=== PATIENT | female | born 1995 | race Caucasian/White ===

== ENCOUNTER 2016-12-09 19:47 | Emergency (ER) | payer OTHER ==
[~2016-12-09] VITALS: Ht 160 cm; Wt 59.9 kg
[2016-12-09] MEDS ORDERED: MULT1CHW39 PO (20:18)
[2016-12-09] MEDS ORDERED: JOLETAB PO (20:18)
[2016-12-09 21:10] LABS: INR 0.91
[2016-12-09 21:27] LABS: BASO % 0.5 % (0.0-1.0); EOS # 0.1 K/mm3 (0.0-0.50); EOS % 1.4 % (0.0-3.0); LARGE UNSTAINED CELL # 0.2 K/mm3 (0.0-0.4); LARGE UNSTAINED CELL % 2.5 % (0.0-4.0); LYMPH # 4.4 K/mm3 (1.5-6.5); MEAN CORPUSCULAR HEMOGLOBIN 31.5 pg (27.0-33.0); MEAN CORPUSCULAR HGB CONC 33.7 g/dl (32.0-36.5); MEAN CORPUSCULAR VOLUME 93.4 fl (80.0-96.0); MONO # 0.5 K/mm3 (0.0-0.8); MONO % 5.3 % (0.0-5.0); NEUTROPHILS # 4.6 K/mm3 (1.8-7.7); NEUTROPHILS % 47.3 % (36.0-66.0); PLATELET COUNT, AUTOMATED 285 k/mm3 (150-450); RED CELL DISTRIBUTION WIDTH 12.3 % (11.5-14.5); WHITE BLOOD COUNT 9.6 K/mm3 (4.0-10.0)
[2016-12-09 21:29] LABS: CONTROL LINE HCG INT CTR LINE PRESENT
[2016-12-09 21:35] LABS: ANION GAP 10 MEQ/L (8-16); BLOOD UREA NITROGEN 7 MG/DL (7-18); CALCIUM LEVEL 9.2 MG/DL (8.5-10.1); CARBON DIOXIDE LEVEL 26 MEQ/L (21-32); CHLORIDE LEVEL 105 MEQ/L (98-107); GLOMERULAR FILTRATION RATE > 60.0 (>60); GLUCOSE, FASTING 94 MG/DL (70-105); POTASSIUM SERUM 3.8 MEQ/L (3.5-5.1); SODIUM LEVEL 141 MEQ/L (136-145)
[2016-12-09] MEDS ORDERED: NS 1,000 ML IV ONE (22:30)
[2016-12-09] MEDS ORDERED: ISOVUE-370 76% 100ML VIAL (Q9967) As Ordered ONE (23:02)
[2016-12-09 23:06] LABS: T UPTAKE 28 % (30-39); THYROXINE (T4) 17.7 UG/DL (4.5-12.0)
--- NOTE | 2016-12-10 01:10 | REPUSA ---
CLINICAL HISTORY: Pain, exclude PE. TECHNIQUE: Multiple incremental axial, coronal and oblique images are obtained from the thoracic inle t to the upper abdomen. Intravenous contrast material was administered as per pulmonary embolism prot ocol. COMMENTS: There is suboptimal opacification of pulmonary arterial system without evidence for central pulmonary embolism. Aorta is of normal caliber without evidence for dissection or aneurysm. There is no evidence of pleural or parenchymal mass. There are no pleural effusions. There is no evid ence of hilar or mediastinal lymphadenopathy. The heart and great vessels are within normal limits. Images of the upper abdomen demonstrate no evidence of adrenal mass. The bony structures are free of lytic or blastic lesions. IMPRESSION: No evidence for central pulmonary embolism. Thank you for your kind referral of this patient.
[2016-12-10] MEDS ORDERED: ATEN25TA PO (01:44)
[2016-12-10] MEDS ORDERED: ATENOLOL 25 MG TAB PO ONE (01:45)
[2016-12-10 01:48] VITALS: BP 141/79
--- NOTE | 2016-12-10 20:14 | ECGEPIP ---
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
== END 2016-12-10 02:04 | disposition home or self-care (01) ==
LOC: M ED 21:38
DX: E03.9 Hypothyroidism, unspecified (principal); Z79.3 Long term (current) use of hormonal contraceptives
CPT/HCPCS: 36415; 71275; 80048; 84436; 84443; 84479; 84703; 85025; 85610; 85730; 93005; 99284; Q9967